=== PATIENT | male | born 1955 | race Caucasian/White ===

== ENCOUNTER 2019-04-01 02:02 | Observation (INO) ==
[2019-04-01] MEDS ORDERED: ASPIRIN PO ONE (02:29)
[2019-04-01 03:49] LABS: HEMATOCRIT 39.2 % (42.0-52.0); HEMOGLOBIN 14.1 g/dL (14.0-18.0); MCH 31.5 PG (27-31); MCV 87.7 FL (81-99); RBC 4.47 XMIL (4.7-6.1); WBC 7.48 X1000 (4.8-10.8)
[2019-04-01 03:50] LABS: BASO# 0.03 X1000 (0.0-0.2); BASO% 0.4 % (0.0-0.8); EOS# 0.08 X1000 (0.0-0.7); EOS% 1.1 % (0.0-10.0); IMM GRAN# 0.02 X1000 (0.0-0.04); IMM GRAN% 0.3 % (0.0-0.5); LYMPH# 2.95 X1000 (1.2-3.4); LYMPH% 39.4 % (20.5-51.1); MONO# 0.59 X1000 (0.11-0.59); MONO% 7.9 % (1.7-9.3); MPV 9.9 FL (7.4-10.4); NEUT# 3.81 X1000 (1.4-6.5); NEUT% 50.9 % (42.2-75.2); PLT 247 X1000 (130-400); RDW 13.3 % (11.5-14.5)
[2019-04-01 03:54] LABS: AGAP 14; ALBUMIN 4.3 g/dL (3.5-5.0); ALKALINE PHOSPHATASE 77 U/L (32-122); BUN 13 mg/dL (8-22); CALCIUM 9.7 mg/dL (8.8-10.2); CHLORIDE 104 mmol/L (98-107); CK PROFILE 106 U/L (24-204); COSMO 285; CREATININE 0.9 mg/dL (0.7-1.2); ESTIMATED GFR > 60; GLUCOSE 101 mg/dL (70-104); GOT 18 U/L (10-34); GPT 21 U/L (10-44); POTASSIUM 4.2 mmol/L (3.5-5.1); SODIUM 143 mmol/L (136-145); TCO2 25 mmol/L (25-35); TOTAL BILIRUBIN 0.73 mg/dL (0.20-1.00); TOTAL PROTEIN 6.5 g/dL (6.3-8.3)
--- NOTE | 2019-04-01 04:08 | PROVIDER DOCUMENTATION ---
HPI-Chest Pain - General Chief Complaint: Chest Pain Stated Complaint: CHEST FEELS FUNNY, PULSE LOW Time Seen by Provider: 04/01/19 02:27 Allergies/Adverse Reactions: Patient Allergies Allergy/AdvReac Type Severity Reaction Status Date / Time No Known Allergies Allergy Verified 08/29/13 16:13 Home Medications: Home Medication List Medication Instructions Recorded Confirmed Last Taken Type Amlodipine [Norvasc] 5 mg PO DAILY #120 tab 04/02/19 Unknown Rx Omeprazole [Prilosec] 20 mg PO DAILY@0700 #30 cap 04/02/19 Unknown Rx - History of Present Illness-CP Nature of Presenting Problem: A 63 Y/O MALE PRESENTS WITH C/O PALPITATIONS AND CHEST DISCOMFORT. PER PT HE STARTED NOT FEELING WELL AROUND NOON. PT FELT SLIGHTLY LIGHTHEADED I NTERMITTENTLY THROUGH OUT THE DAY. HE WENT TO WORK AT [employer] AND AROUND 1 AM STARTED FEELING THE SAME. WHEN HIS PULSE WAS MEASURED AT WORK IT WAS IN 40'S AND THERE WERE MULTIPLE MISSED BEATS. HE WAS SENT TO ER. PT DENIES ANY NEUROLOGICAL SYMPTOMS. DENIES HX OF ANY OTHER MEDICAL ISSUES. Review of Systems - Adult - REVIEW OF SYSTEMS - ADULT Constitutional: denies: no symptoms reported Eyes: denies: no symptoms reported Ears, Nose, Mouth & Throat: denies: no symptoms reported Cardiovascular: reports: see HPI, palpitations Respiratory: reports: see HPI, shortness of breath Gastrointestinal: denies: no symptoms reported Genitourinary: denies: no symptoms reported Integumentary: denies: no symptoms reported Neurological: denies: no symptoms reported Psychiatric: denies: no symptoms reported Past History - Adult - PAST MEDICAL HISTORY-ADULT Review of Records: reports: Nursing Assessment Review, Medications Reviewed, Social history reviewed & non-contributory. Major Childhood Illnesses: reports: denies history Cardiovascular: reports: denies history Respiratory: reports: denies history Gastrointestinal: reports: denies history Obstetrical/Gynecological: reports: denies history Genitourinary: reports: denies history Musculoskeletal: reports: denies history Neurological: reports: denies history Endocrine/Immune: reports: denies history Other Conditions: reports: denies history - PRIOR SURGERIES/PROCEDURES Surgical/Procedure History: reports: none - PRIOR HOSPITALIZATIONS Prior Hospitalizations: reports: none - IMMUNIZATION STATUS Childhood Immunizations: See Nurse Assessment Flu Vaccine: See Nurse Assessment - FAMILY HISTORY Family History: reviewed, not pertinent Physical Exam-General - PHYSICAL EXAM-ADULT Initial Vital Signs Reviewed: Yes - CONSTITUTIONAL General Appearance: appears well, alert, no apparent distress - EYES Eyes: PERRL/EOMI - HEAD, EARS, NOSE, MOUTH & THROAT HENMT: normocephalic/atraumatic, moist mucous membranes, normal ENT inspection, pharynx normal - NECK Neck: supple - RESPIRATORY Respiratory: lungs clear, normal breath sounds, no respiratory distress, no accessory muscle use - CARDIOVASCULAR Cardiovascular: regular rate, rhythm, no edema, no murmur - GASTROINTESTINAL (ABDOMEN) Abdominal Exam: non tender, soft - MUSCULOSKELETAL Back Exam: normal inspection, no CVA tenderness, no vertebral tenderness Extremity: no pedal edema - SKIN Integumentary: normal color, warm/dry - NEUROLOGIC Neurologic: grossly normal - PSYCHIATRIC Psych/Mental Status: normal mood/affect, oriented x 3 - HEART Score HEART Score: History: Slightly Suspicious HEART Score: ECG: Normal HEART Score: Age: 45-65 Years HEART Score: Risk Factors for Atherosclerotic Disease: No Risk Factors Known HEART Score: Troponin: < or = Normal Limit Total HEART Score:: 1 Progress - PLAN OF CARE/RESULTS Result Diagrams: 04/01/19 02:50 04/01/19 02:50 - EKG 1 Time of EKG reading by physician:: 02:15 EKG Interpretation (*Must complete 3 of following elements*): Normal Rate: 82 Rhythm: NSR QRS: Q Waves present (INFERIOR LEADS) Prior EKG Comparison: no prior EKG - CONSULTS/PCP/HOSPITALIST Notification #1 *Consult/PCP/Hospitalist*: D/W DR LOPES Time Discussed: 05:40 Consult Disposition: Admit (ADMIT OBSERVATION) Departure - Departure Date of Disposition Decision: 04/01/19 Time of Disposition Decision: 05:40 DIAGNOSIS: Chest discomfort, Heart palpitations Disposition: ADMITTED INPATIENT 09 Certified Medical Emergency: Emergent Condition: Stable - Critical Care Note This patient required my direct & personal management of CC.: No Attestation - Physician/ ROYAL Attestation Patient care was provided by Advanced Practice Provider:: No The physician spent face to face time with patient:: Yes Advanced Practice Provider documentation review:: Supervising physician onsite and consulted in the evaluation and care of this patient. The physician did have a face to face encounter with the patient.
--- NOTE | 2019-04-01 05:53 | EKG Report ---
Test Performed on : 04/01/2019 02:14:34 AM Test Reason : CP Blood Pressure : / mmHG Vent. Rate : 082 BPM Atrial Rate : 082 BPM P-R Int : 140 ms QRS Dur : 086 ms QT Int : 364 ms P-R-T Axes : 072 071 082 degrees QTc Int : 425 ms Normal sinus rhythm. Possible Left atrial enlargement Borderline ECG When compared with ECG of 29-AUG-2013 16:32, No significant change was found Unconfirmed Result
--- NOTE | 2019-04-01 06:46 | HISTORY AND PHYSICAL ---
PRIMARY CARE PHYSICIAN: Dr. Montano. CHIEF COMPLAINT: Chest pain. HISTORY OF PRESENTING ILLNESS: A 63-year-old male without any significant past medical history presented to emergency department with 1-day history of having chest pain. He described it as pressure-like and stated that he not feel well. The patient was evaluated in the emergency department and, due to his presenting symptoms, it was thought that we will place him for observation for further evaluation and management. At the time of my examination, he denied any headache, fever, chills, nausea, vomiting, diarrhea, hemoptysis, melena or weight changes, but complained of chest discomfort. PAST MEDICAL HISTORY: None. PAST SURGICAL HISTORY: Hernia repair. ALLERGIES: No known drug allergies. CURRENT MEDICATION: He does not recall. Nursing staff will reconcile. SOCIAL HISTORY: A 40 pack/years history of smoking. Denies any history of alcohol or illicit drug use. FAMILY HISTORY: No history of coronary artery disease. REVIEW OF SYSTEMS: Fourteen point systems is as in HPI. Other systems negative. PHYSICAL EXAMINATION: GENERAL: Cooperative, friendly male. He is resting comfortably now. VITAL SIGNS: Temperature 98.6 degrees, pulse 90, respirations 16, blood pressure 141/96, saturating 98%. HEENT: Atraumatic, normocephalic. Extraocular movements intact. PERRLA. NECK: Supple. CHEST: Clear to auscultation. CARDIOVASCULAR: Regular rhythm, S1-S2. ABDOMEN: Soft, positive bowel sounds. EXTREMITIES: No edema. NEUROLOGIC: He is awake, alert, oriented x3. : No bladder distention. SKIN: Warm. LABORATORIES/STUDIES: WBC 7.48, hemoglobin 14.1, hematocrit 39.2, platelets 247,000. Sodium 143, potassium 4.2, chloride 104, CO2 25, BUN 13, creatinine 0.9, glucose 101. ASSESSMENT: A 63-year-old male without any significant past medical history presented to emergency department with a 1-day history of chest pain. We will place the patient for observation for evaluation and management of chest pain. 1. Chest pain. 2. Ongoing tobacco abuse. PLAN: 1. We will admit patient to medical floor with telemetry. 2. Continue with cardiac workup. Check EKG, serial cardiac enzymes. Have patient continue on aspirin. We will use sublingual nitroglycerin for recurrent chest pain. 3. We will consult Cardiology. 4. Counseled patient extensively on smoking cessation. 5. We will put patient on DVT prophylaxis with SCDs. 6. We will continue to follow and reassess need and make further recommendations based on patient's clinical course. cc: Patricio Bryant MD
--- NOTE | 2019-04-01 07:24 | Diag Imaging Result Doc PS360 ---
EXAM: CHEST-PORTABLE INDICATION: cp TECHNIQUE: One view COMPARISON: 08/29/2013 FINDINGS: There is a vague nodular density in the periphery of the right midlung zone. It is stable as far back as 2011 and probably represents a granuloma. The lungs are grossly clear, otherwise. There is no discrete pleural fluid collection or pneumothorax. The cardiomediastinal silhouette and central vasculature are grossly unremarkable. IMPRESSION: No evidence of acute pathology by plain radiograph. Electronically signed by Avery Munoz 04/01/2019 7:22 AM
[2019-04-01] MEDS ORDERED: NITROGLYCERIN SL PRN (07:42)
[2019-04-01] MEDS ORDERED: ZOFRAN IV PRN (07:42)
[2019-04-01] MEDS ORDERED: TYLENOL PO PRN (07:42)
[2019-04-01] MEDS: PRILOSEC PO SCH (08:05)
[2019-04-01] MEDS ORDERED: ASPIRIN PO SCH (09:00)
--- NOTE | 2019-04-01 10:40 | EKG Report ---
Test Performed on : 04/01/2019 09:51:40 AM Test Reason : chest pain Blood Pressure : / mmHG Vent. Rate : 071 BPM Atrial Rate : 071 BPM P-R Int : 160 ms QRS Dur : 086 ms QT Int : 402 ms P-R-T Axes : 069 068 078 degrees QTc Int : 436 ms Normal sinus rhythm. Normal ECG When compared with ECG of 01-APR-2019 02:14, (Unconfirmed) No significant change was found Confirmed by Julee Patterson MD ([id number]) on 04/01/2019 4:11:41 PM
[2019-04-01] MEDS: NORVASC PO SCH (11:31)
--- NOTE | 2019-04-01 13:24 | ECHO REPORT ---
ORDER DATE: 04/01/2019 INTERPRETING PHYSICIAN: Tomy Cerna MD ECHOCARDIOGRAPHIC MEASUREMENTS: 1. Interventricular septum 1.1 cm. 2. Left ventricular posterior wall 0.8 cm. 3. Diastolic diameter 4.6 cm. 4. Left atrium 3 cm. 5. Aorta 3.5 cm. SUMMARY OF THE 2-DIMENSIONAL IMAGIN. Aortic valve leaflets are trileaflet. 2. There is no aortic stenosis. 3. There is trace aortic regurgitation. 4. Pulmonic valve was normal. 5. Tricuspid valve was normal. 6. Mitral valve was normal. 7. There is mild tricuspid regurgitation. 8. Peak velocity across the tricuspid valve was 2 m/sec. 9. There is trace mitral regurgitation. 10. Peak velocity across the aortic valve was less than 2 m/sec. 11. By Doppler studies, there is no aortic stenosis or regurgitation. 12. Normal left ventricular cavity size. 13. Estimated ejection fraction of 60%. 14. There is no pericardial effusion or obvious intracardiac mass or thrombus seen. cc: MD Shanta Renee PA
--- NOTE | 2019-04-01 15:03 | CARDIOLOGY CONSULTATION ---
DATE: 04/01/2019 CONSULTATION REQUESTED BY: Hospitalist service. REASON FOR CONSULTATION: Arrhythmia, chest discomfort, hypertension. HISTORY: Mr. Razo is a 63-year-old male who presented to the emergency room 04/01/2019 at about 2 a.m. in the morning. The patient noted a sensation of "hollow" feeling in the center of the chest that happened about an hour after he reported to work. He did not do anything out of the ordinary. 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 Because of this feeling and also lightheadedness associated with it, he went to the nurse at work. He had checked his blood pressure and noted that it was elevated and the nurse rechecked it and confirmed that it was elevated. In addition, she also picked up on some irregular heartbeat and recommended an emergency room evaluation. In the ER, they did an EKG at about 2:14 a.m. that showed sinus rhythm with possible left atrial enlargement. Subsequent EKG done at 9:51 a.m. looked basically normal. He still feels intermittently that sensation in the chest. His cardiac monitor technician shows that he has PACs rather frequently. His sensation of lightheadedness is better. No true chest pain has happened. His blood pressure since admission was 141/96 and subsequently 140/106, 149/94, 143/104. He has multiple blood pressure measurements indicating some degree of hypertension. PAST MEDICAL HISTORY: The patient has really no prior past medical history. PAST SURGERY HISTORY: 1. He had hernia repair. 2. In 2010, he underwent a heart catheterization by Dr. Linda Rod that showed mild plaque in the LAD. 3. He had hemorrhoidectomy. SOCIAL HISTORY: He is . He works at a [employer], night custodian. He has been doing that for a while. He has been a smoker of half a pack to a pack a day for 40 years. He still smokes. Not a drinker. He has been using CBD oil as needed for aches and pains. He has 1 daughter. FAMILY HISTORY: Mother has hypertension. ALLERGIES: Not allergic to anything. MEDICATIONS: He is not on any prescription medication. He follows up with Dr. Montano. No major illnesses reported at this time. There was an episode of flu about 6 months ago. REVIEW OF SYSTEMS: Otherwise noncontributory. PHYSICAL EXAMINATION: Vital signs: Blood pressure 149/93, pulse 74, temperature 97.4 degrees, respirations 18. General: He is awake, alert, oriented, in no distress. HEENT: Unremarkable. Chest: Chest sounds clear to auscultation and percussion. Heart: Sounds are regular and rhythmic with some extrasystoles. Abdomen: Nontender. No masses. No hepatomegaly. Extremities: Show good pulses. No peripheral edema. Neuro: Follows commands. Moves all 4 extremities. LABORATORY DATA: D-dimer negative. Sodium and potassium, liver function tests, CPK, troponin, etc., all normal. Hemoglobin 14.1, hematocrit 39.2. Chest x-ray is from this morning and shows no acute pathology. IMPRESSION: 1. Patient presenting with hypertension of relatively new onset associated with atypical discomfort in the chest. This may be secondary to premature atrial/premature ventricular beats. 2. Tobacco user. 3. Hypertension, newly diagnosed. 4. The patient has already been diagnosed with mild coronary artery disease by heart catheterization in 2010. This may warrant treatment with cholesterol- lowering medication. RECOMMENDATION: At this time, I think it will be appropriate to do an echocardiogram and obtain a stress test. Hopefully that will help us to risk stratify this patient better.We will check a lipid panel on him and further advice will be forthcoming. Thank you for opportunity to participate in his evaluation. cc: MD BRANDON Kapadia
--- NOTE | 2019-04-02 07:44 | EKG Report ---
Test Performed on : 04/02/2019 07:18:06 AM Test Reason : chest pain equivalent Blood Pressure : / mmHG Vent. Rate : 074 BPM Atrial Rate : 074 BPM P-R Int : 154 ms QRS Dur : 086 ms QT Int : 370 ms P-R-T Axes : 074 082 090 degrees QTc Int : 410 ms Sinus rhythm. with occasional premature ventricular complexes. Nonspecific ST and T wave abnormality Abnormal ECG When compared with ECG of 01-APR-2019 09:51, premature ventricular complexes. are now present Confirmed by Julee Patterson MD ([id number]) on 04/07/2019 9:27:40 PM
[2019-04-02 08:07] LABS: CHOLESTEROL 196 mg/dL (0-200); HDL 31 mg/dL (35-55); LDL 96 mg/dL; TRIGLYCERIDES 346 mg/dL (39-160); VLDL 69 mg/dL
[2019-04-02] MEDS ORDERED: ASPIRIN PO SCH (09:00)
[2019-04-02] MEDS: PRILOSEC PO SCH (10:48)
[2019-04-02] MEDS: NORVASC PO SCH (10:48)
--- NOTE | 2019-04-02 12:20 | PROGRESS NOTE ---
DATE: 04/02/2019 SUBJECTIVE: This morning Mr. Porter refers to be doing a lot better. No more chest pain. No chest discomfort. OBJECTIVE: Vital signs: Blood pressure is 121/81, pulse of 80, respiration is 18, temperature 98.5 degrees. General: Mr. Razo is 63-year-old male. He is in bed, no distress. HEENT: Mucosa is pink and moist. Anicteric. Acyanotic. Neck: Supple. Chest: Good air entry bilaterally. There was no crepitations, no rhonchi. Cardiovascular: Regular rate and rhythm. No murmurs, no rubs, no gallops. Abdomen: Soft, nontender. Bowel sounds present. Extremities: No pedal edema. HAM PASSER: The patient is awake, alert, oriented. There is no focal neurological deficit. DIAGNOSTIC DATA: No new lab work except for cholesterol panel which shows mildly elevated triglycerides and very low HDL. Imaging studies include an echocardiogram that has ejection fraction of 60% with normal left ventricle cavity. ASSESSMENT: 1. Acute chest discomfort on presentation, mostly likely related to uncontrolled hypertension. The patient feels a whole lot better now. Troponins and EKGs have been unremarkable. We are still waiting on the stress test. We presume this was probably hypertensive induced precordialgia. 2. Newly diagnosed hypertension. Controlled on medications. 3. Dyslipidemia. The patient has been advised on dietary recommendations for at least 3 months and repeat the cholesterol level afterwards. 4. Tobacco use. The patient has been counseled. PLAN: In general, I think Mr. Razo is doing remarkably well. We are waiting on the stress test. If that is negative, I think we can discharge him to follow up with his primary care doctor. We have also advised him on diet recommendation for the cholesterol as well as a blood pressure long- term management. cc: Abimael Ramos MD
[2019-04-02 15:13] VITALS: BP 120/77
--- NOTE | 2019-04-02 17:01 | Diag Imaging Result Document ---
PROCEDURE NAME: MYOCARDIAL PERF SCAN, STR/REST - 04/01/2019 INDICATION: This is a 63-year-old male with atypical chest discomfort, palpitations. DESCRIPTION OF PROCEDURE: The patient came into the nuclear lab and received a rest injection of technetium 99 sestamibi 31.9 mCi. Multiple tomographic views of the heart were obtained at rest. This happened on 04/01/2019. The patient returned for the stress test on 04/02/2019. At that time, he exercises on the treadmill using Rigo protocol and at peak exercise was injected with technetium 99 sestamibi 30.8 mCi. Multiple tomographic views of the cardiac structures were obtained following completion of the protocol. SUMMARY OF ELECTROCARDIOGRAPHIC PORTION OF THE STUDY: Resting ECG shows sinus rhythm at rate of 77 beats per minute. Resting blood pressure is 120/81. Resting ECG shows frequent PVCs most likely in a trigeminy pattern. No significant ST-T abnormalities noted. The patient walked on the treadmill for a total time of 9 minutes. He completed 3 stages of protocol. Achieved maximum heart rate of 162 beats per minute representing 101% of maximum predicted heart rate for his age. Peak blood pressure is 148/75. Maximum work load is 10.1 METS. The peak exercise ECG shows sinus tachycardia without any ischemic changes. The patient reported no chest pain, shortness of breath or palpitations. The ECG showed no significant changes. The patient was injected with radiotracer 1 minute prior to termination of exercise. Following the completion of the test, the heart rate and blood pressure returned back to baseline. CONCLUSIONS: In summary, electrocardiographic response to exercise is normal. Blood pressure response is physiologic. Exercise capacity is 10% above average for age and gender. The level of stress based on double product of peak systolic blood pressure times peak heart rate is good at 23,976. The work load is 10.1 METS. SUMMARY OF MYOCARDIAL PERFUSION PORTION OF THE STUDY: Poststress tomographic views of the left ventricle showed normal homogeneous distribution of radiotracer throughout the entire left ventricular myocardium. There is no evidence of any postexercise defect. The rest images showed normal perfusion. The polar plots revealed the same. There is no evidence of neither inducible ischemia nor myocardial scar. Gated SPECT on the rest images showed ejection fraction of 68%, post stress is 72%. Using the Myometrix protocol, the resting ejection fraction is 64%, post stress is 73%. That is a normal rise from rest to stress. Lung/heart ratio is normal. TID is normal. CONCLUSIONS: In summary, this study showed: 1. Normal electrocardiographic response to a Rigo protocol. 2. Normal poststress myocardial perfusion scan. There is no scintigraphic evidence of effort induced myocardial ischemia. 3. Normal left ventricular systolic function. Ejection fraction was 72% with normal rise from rest to stress. 4. This study represents a low risk for ischemic events. cc: MD Shanta Kapadia PA
--- NOTE | 2019-04-02 17:10 | CARDIOLOGY PROGRESS NOTE ---
DATE: 04/02/2019 CHIEF COMPLAINT: Palpitations, atypical discomfort. SUBJECTIVE: The patient is feeling better. Today he underwent a stress test. His stress test was basically normal. Echocardiogram done yesterday showed no abnormalities of any significance. OBJECTIVE: Vital Signs: Blood pressure is 120/77, temperature 98.2, pulse 83, respirations 20. General: He is awake and alert, in no distress. HEENT: Unremarkable. Chest: Clear to auscultation and percussion. Cardiovascular: Regular rate and rhythm. No gallop or murmur. Abdomen: Nontender. Extremities: No edema. Neurological: Nonfocal. Moves all 4 extremities. BLOOD WORK: Cholesterol 196, triglycerides 346, LDL 96, HDL 31. IMPRESSION: 1. Patient who presented with very atypical complaints; however, he does have an arrhythmia, PVCs, bigeminy like. 2. Tobacco use. 3. Hypertension. 4. History of mild coronary heart disease. RECOMMENDATIONS: At this time the patient is probably stable. He can be discharged. I would suggest to put him on pravastatin 40 mg daily because of his prior diagnosis of mild coronary heart disease. Otherwise, I would probably arrange for a 30-day loop recorder at my office. We will arrange for a followup. Thank you again for the opportunity to participate in his evaluation. cc: Dontrell Smith MD MTDD
--- NOTE | 2019-04-02 23:57 | DISCHARGE SUMMARY ---
ADMISSION DATE: 04/01/2019 DISCHARGE DATE: 04/02/2019 DISPOSITION: Home. FOLLOWUP: 1. Dr. Montano. 2. Dr. Smith. INVASIVE PROCEDURES: None. DIAGNOSTIC DATA: Imaging studies of significance: 1. A chest x-ray showed no evidence of acute pathology. 2. Echocardiogram showed an ejection fraction of 60%. No major valvulopathy. 3. Myocardial perfusion scan shows normal post-stress myocardial perfusion scan. No scintigraphic evidence of effort-induced myocardial ischemia. Ejection fraction was 72%. ADMISSION DIAGNOSES: 1. Chest pain. 2. Ongoing tobacco abuse. DISCHARGE DIAGNOSES: 1. Atypical chest pain with unremarkable electrocardiogram and troponin, and negative stress test. 2. Suspected hypertension-induced precordialgia. 3. Newly diagnosed hypertension. 4. Dyslipidemia. 5. Tobacco use. DISCHARGE MEDICATIONS: 1. Amlodipine 5 mg p.o. daily. 2. Omeprazole 20 mg p.o. daily. RECOMMENDATION: 1. The patient is supposed to follow up with Dr. Smith within 30 days, as well as with his primary care doctor. 2. The patient has been given diet recommendations for the dyslipidemia, and advised to repeat cholesterol panel within 3 months. PRESENTING COMPLAINT: Chest pain. HISTORY OF PRESENTING COMPLAINT: Mr. Razo is a 63-year-old male with no past medical history, who came into the emergency department because of chest discomfort. He was found to be extremely hypertensive with a blood pressure of 153 with a diastolic somewhere around 103. It went up to be 106 at some point. Mr. Razo was admitted to the medical floor for cardiac risk stratification. HOSPITAL COURSE: Mr. Razo was started on blood pressure control, which got the blood pressure better, and he was seen by Cardiology. A decision was made to do a stress test and other cardiac testing. The patient underwent serial cardiac troponins, which came back negative. EKGs did not show any ST-segment or T-wave abnormalities. The stress test was negative. His blood pressure also got controlled and the patient felt better. This morning, Mr. Razo refers to be completely asymptomatic. His current vital signs: Blood pressure is 120/77 with a pulse of 83, respirations 20, temperature 98.2 degrees. We think Mr. Razo is clinically stable for discharge. He is going to be on amlodipine for a short period of time until he goes back to see his primary care doctor. He is also going to follow up with Dr. Smith. A decision will be made as an outpatient on cholesterol management, if dietary recommendation is not enough. All of the discharge instructions have been discussed with Mr. Razo. was at the bedside at the time of the encounter. Time spent for discharge was 35 minutes. cc: MD Yovany Gallegos MD Luis N. Villanueva, MD
== END 2019-04-02 17:45 | disposition home or self-care (01) ==
LOC: SUPCPDRO → 3N 02:02 → ED 02:02 → SUATTDRO 02:03
PROVIDERS: ATTEND Internal Medicine